=== PATIENT | male | born 1985 | race Caucasian/White ===

== ENCOUNTER 2019-03-08 08:21 | Emergency (ER) | payer OTHER ==
[2019-03-08] MEDS: IBUPROFEN 600 MG TAB PO (08:44)
[2019-03-08] MEDS: HYDROCODONE/APAP (5/325) TAB PO (08:45)
== END 2019-03-08 10:00 | disposition home or self-care (01) ==
LOC: FTE 08:21
DX: S89.92XA Unspecified injury of left lower leg, initial encounter (principal); X58.XXXA Exposure to other specified factors, initial encounter; Y92.9 Unspecified place or not applicable
CPT/HCPCS: 29505; 73562; 99283-25